=== PATIENT | male | born 1940 | race Two or more races ===

== ENCOUNTER 2020-11-11 13:23 | Emergency (ER) | payer OTHER ==
[~2020-11-11] VITALS: Ht 177.8 cm; Wt 75.3 kg
[2020-11-11] MEDS ORDERED: ZETIA10 MG (13:28)
[2020-11-11] MEDS ORDERED: LEVOXYL100 MCG (13:28)
[2020-11-11] MEDS ORDERED: VERELAN240 MG (13:29)
[2020-11-11] MEDS ORDERED: AMIODARONE HCL100 MG (13:29)
[2020-11-11] MEDS ORDERED: XARELTO20 MG (13:29)
[2020-11-11] MEDS ORDERED: FOLIC ACID0.8 M1 (13:45)
[2020-11-11] MEDS ORDERED: ONE DAILY FOR1 EAC1 (13:45)
== END 2020-11-11 18:59 | disposition home or self-care (01) ==
LOC: ER 13:23
DX: R18.8 Other ascites (principal); K74.69 Other cirrhosis of liver; J90 Pleural effusion, not elsewhere classified; R10.84 Generalized abdominal pain; R60.0 Localized edema; Z95.0 Presence of cardiac pacemaker

== ENCOUNTER 2020-11-22 08:34 | Emergency (ER) | payer OTHER ==
[~2020-11-22] VITALS: Ht 177.8 cm; Wt 76.7 kg
[~2020-11-22 08:34] MED LIST: AMIODARONE HCL100 MG; FOLIC ACID0.8 M1; LEVOXYL100 MCG; ONE DAILY FOR1 EAC1; VERELAN240 MG; XARELTO20 MG; ZETIA10 MG
== END 2020-11-22 22:51 | disposition home or self-care (01) ==
LOC: ER 08:34
DX: R53.1 Weakness (principal); K76.89 Other specified diseases of liver; Z60.2 Problems related to living alone